=== PATIENT | male | born 1970 | race Two or more races ===

== ENCOUNTER 2021-03-06 11:30 | Emergency (ER) | payer OTHER ==
[~2021-03-06] VITALS: Ht 172.7 cm; Wt 80.0 kg
[2021-03-06 11:56] VITALS: BP 144/87
--- NOTE | 2021-03-06 12:25 | PHYS DOC ---
Past Medical History Past Surgical History: No Surgical History (EDWARD MORALEZ APRN) Smoking Status: Never Smoker Alcohol Use: Occasionally (EDWARD MORALEZ APRN) General Adult EDM: Chief Complaint: GROIN PAIN HPI: HPI: Patient is a 50-year-old male that presents today with groin pain. Patient is Colombian-speaking only so an interpreter translator was used for the entire assessment. Patient states that he has been having groin pain and penile pain for 1 month he states today that yesterday he was attempting to have sex and he felt like a piece of glass was poking him in his penis and that is the reason he came in. Patient states he also has pain and tenderness along the scrotal area along with his anal area. Patient denies blood in his stool he denies denies blood in his urine as well. (EDWARD MORALEZ APRN) Review of Systems: Review of Systems: Constitutional: Denies fever or chills. [] Eyes: Denies change in visual acuity. [] HENT: Denies nasal congestion or sore throat. [] Respiratory: Denies cough or shortness of breath. [] Cardiovascular: Denies chest pain or edema. [] GI: Anal pain, denies abdominal pain, blood in the urine, blood in the stool, or nausea vomiting : Penile pain, scrotal pain Musculoskeletal: Denies back pain or joint pain. [] Integument: Denies rash. [] Neurologic: Denies headache, focal weakness or sensory changes. [] Endocrine: Denies polyuria or polydipsia. [] Lymphatic: Denies swollen glands. [] Psychiatric: Denies depression or anxiety. [] (EDWARD MORALEZ APRN) Heart Score: C/O Chest Pain: N/A Risk Factors: Risk Factors: DM, Current or recent (<one month) smoker, HTN, HLP, family history of CAD, obesity. Risk Scores: Score 0 - 3: 2.5% MACE over next 6 weeks - Discharge Home Score 4 - 6: 20.3% MACE over next 6 weeks - Admit for Clinical Observation Score 7 - 10: 72.7% MACE over next 6 weeks - Early Invasive Strategies (EDWARD MORALEZ APRN) Allergies: Allergies: Allergies Coded Allergies Type Severity Reaction Last Updated Verified No Known Drug Allergies 03/06/21 No (EDWARD MORALEZ APRN) Physical Exam: PE: Constitutional: Well developed, Well nourished, No acute distress, Non-toxic appearance. HENT: Normocephalic, Atraumatic, Bilateral external ears normal, Oropharynx moist, No oral exudates, Nose normal. Eyes: PERRLA, EOMI, Conjunctiva normal, No discharge. Neck: Normal range of motion, No tenderness, Supple, No stridor. Cardiovascular: Normal heart rate, Normal rhythm, No murmurs, No rubs, No gallops. Thorax & Lungs: Normal breath sounds, No respiratory distress, No wheezing, No c hest tenderness. Abdomen: Soft, nontender, normal active bowel sounds, no bruits no abdominal mass present. Annual exam completed hemorrhoid noted no bleeding or swelling noted of the hemorrhoid, digital exam showed no acute blood : Uncircumcised, tenderness noted with palpation of the tip of the penis, no lesions, redness noted, no tenderness noted with palpation of the scrotal area, prostate checked and it was swollen and tender to touch Skin: Warm, Dry, No erythema, No rash. Back: No tenderness, No CVA tenderness. Extremities: Intact distal pulses, No edema, No tenderness, No cyanosis, No clubbing. Neurologic: Alert & oriented x 3, Normal motor function, Normal sensory function, No focal deficits noted. (EDWARD MORALEZ [employer]) Current Patient Data: Labs: Laboratory Tests Test 03/06/21 12:05 Urine Collection Type Unknown Urine Color Yellow Urine Clarity Clear Urine pH 6.0 Urine Specific [place] 1.015 Urine Protein Negative mg/dL Urine Glucose (UA) Negative mg/dL Urine Ketones (Stick) Negative mg/dL Urine Blood Negative Urine Nitrite Negative Urine Bilirubin Negative Urine Urobilinogen Dipstick 0.2 mg/dL Urine Leukocyte Esterase Negative Urine RBC 0 /HPF Urine WBC 0 /HPF Urine Squamous Epithelial Cells Occ /LPF Urine Bacteria 0 /HPF Vital Signs: Vital Signs Date Time Temp Pulse Resp B/P (MAP) Pulse Ox O2 Delivery O2 Flow Rate FiO2 03/06/21 11:56 97.7 86 16 144/87 (106) 100 Room Air 97.7 (EDWARD MORALEZ [employer]) EKG: EKG: [] (EDWARD MORALEZ APRN) Radiology/Procedures: Radiology/Procedures: [] (EDWARD MORALEZ APRN) Course & Med Decision Making: Course & Med Decision Making Pertinent Labs and Imaging studies reviewed. (See chart for details) 1415 spoke to patient regarding urine results and exam findings. Patient does have prostate does not have any prostatitis or UTI we will send patient home for fungal infection of his penis instructed patient to clean penis with drying the foreskin twice daily pat dry place cream on until symptoms stop. Patient will be given a list of clinics that he can follow-up with for if symptoms continue. Patient verbalizes understanding of these instructions and agrees with plan of care all of these instructions were given through the use of an interpreter translator services due to the fact the patient only speaks Colombian. (EDWARD MORALEZ APRN) Dragon Disclaimer: Dragpierce Disclaimer: This electronic medical record was generated, in whole or in part, using a voice recognition dictation system. (EDWARD MORALEZ APRN) Departure Departure Impression: Primary Impression: Balanoposthitis Disposition: HOME / SELF CARE / HOMELESS Condition: STABLE Referrals: LINNEA SULTANA DO (PCP) Patient Instructions: Balanitis and Foreskin Hygiene Additional Instructions: Clean penis twice daily with a Q-tip and flush with water with drying the foreskin while doing so make sure the area stays clean and dry Use the cream twice daily on the tip of the penis until symptoms revolve Avoid sexual contact until your symptoms resolve If pain or swelling occurs, inability to urinate occurs please return to the emergency department Follow-up with your primary care physician in 5 to 7 days if symptoms no better Scripts Clotrimazole (CLOTRIMAZOLE) 15 Gm Cream..g. 1 EL TP BID for pain for 7 Days, #45 GM Prov: EDWARD MORALEZ APRN 03/06/21 Attending Signature Attending Signature I have reviewed the PA/TE[employer]ER [employer]'s note and plan of care. I was available for consultation as needed during the patient's visit in the emergency department. I agree with the clinical impression, plan, and disposition. (DEBI ROSE DO) EDWARD MORALEZ APRN Mar 06, 2021 12:25 DEBI ROSE DO Mar 07, 2021 06:36
[2021-03-06 12:26] LABS: BILIRUBIN,URINE NEGATIVE (NEG); CLARITY,URINE CLEAR; COLOR,URINE YELLOW; NITRITE,URINE NEGATIVE (NEG); PROTEIN,URINE NEGATIVE (NEG-TRACE); UROBILINOGEN,URINE 0.2 mg/dL (0.2 mg/dL)
[2021-03-06 12:46] LABS: BACTERIA,URINE 0 /HPF (0-FEW); RBC,URINE 0 /HPF (0-2); WBC,URINE 0 /HPF (0-4)
[2021-03-06] MEDS ORDERED: CLOT15CR23 TP (14:29)
== END 2021-03-06 14:38 | disposition home or self-care (01) ==
LOC: ER 11:57
DX: N47.6 Balanoposthitis (principal)
CPT/HCPCS: 81001; 87491; 87591; 99282